=== PATIENT | female | born 1980 | race Asian ===

== ENCOUNTER 2016-08-30 05:20 | Inpatient (IN) | payer OTHER ==
[~2016-08-30] VITALS: Ht 162.6 cm; Wt 74.4 kg
[2016-08-30 10:58] LABS: microscopic required? YES; urine erythrocyte 3+ (NEGATIVE)
[2016-08-30 11:02] LABS: BASOPHIL % 0.3 % (0-2); PLATELET COUNT 239 x10^3mcL (130-400); RED CELL DISTRIBUTION WIDTH 12.6 % (11.5-14.5)
[2016-08-30 11:20] LABS: CALCIUM 8.9 mg/dL (8.5-10.1); CHLORIDE SERUM 105 mmol/L (98-107); CREATININE SERUM 0.8 mg/dL (0.6-1.0); GFR1 > 60 mL/min; GLUCOSE SERUM 108 mg/dL (74-106); SODIUM SERUM 138 mmol/L (136-145)
[2016-08-30 11:25] LABS: ALBUMIN 3.8 g/dL (3.4-5.0); ALKALINE PHOSPHATASE 53 U/L (46-116); ALT/SGPT 338 U/L (14-59); AMYLASE 32 U/L (25-115); AST/SGOT 141 U/L (15-37); LIPASE 147 IU/L (73-393); TOTAL PROTEIN, SERUM 7.4 g/dL (6.4-8.2)
[2016-08-30] MEDS ORDERED: BACTRIM DS1 TAB PO (13:40)
[2016-08-30 14:39] LABS: FREE T4 1.2 ng/dL (0.76-1.46); FREE THYROXINE INDEX 3.7 ug/dL (1.4-4.5); T4(THYROXINE) 11.7 ug/dL (4.7-13.3)
[2016-08-30 14:47] LABS: T3 TOTAL 1.51 ng/mL
[2016-08-30 15:41] LABS: CHOLESTEROL/HDL RATIO 3.4; MAGNESIUM 2.1 mg/dL (1.8-2.4); PHOSPHOROUS 2.4 mg/dL (2.5-4.9)
[2016-08-30 16:09] VITALS: BP 129/83
[2016-08-30 17:17] LABS: AMPHETAMINE QUAL UR NONE DETECTED (NEG <=1000)
[2016-08-30 17:28] VITALS: Ht 162.6 cm; Wt 74.4 kg
[2016-08-30 20:36] VITALS: BP 114/70
[2016-08-31 05:45] VITALS: BP 112/71
[2016-08-31 06:35] LABS: BASOPHIL % 0.3 % (0-2); PLATELET COUNT 194 x10^3mcL (130-400); RED CELL DISTRIBUTION WIDTH 12.4 % (11.5-14.5)
[2016-08-31 06:49] LABS: CALCIUM 8.1 mg/dL (8.5-10.1); CARBON DIOXIDE 22.5 mmol/L (21-32); CHLORIDE SERUM 113 mmol/L (98-107); CREATININE SERUM 0.8 mg/dL (0.6-1.0); GFR1 > 60 mL/min; GLUCOSE SERUM 109 mg/dL (74-106); POTASSIUM SERUM 3.8 mmol/L (3.5-5.1); SODIUM SERUM 146 mmol/L (136-145)
[2016-08-31 08:40] VITALS: BP 110/69
[2016-08-31 13:40] VITALS: BP 119/69
[2016-08-31 13:45] VITALS: BP 114/75
[2016-08-31 17:21] VITALS: BP 122/82
[2016-08-31 20:57] VITALS: BP 109/69
[2016-09-01 05:25] VITALS: BP 100/76
[2016-09-01 06:08] LABS: BASOPHIL % 0.3 % (0-2); PLATELET COUNT 208 x10^3mcL (130-400); RED CELL DISTRIBUTION WIDTH 12.5 % (11.5-14.5)
[2016-09-01 06:25] LABS: CALCIUM 8.9 mg/dL (8.5-10.1); CARBON DIOXIDE 22.8 mmol/L (21-32); CHLORIDE SERUM 108 mmol/L (98-107); CREATININE SERUM 0.7 mg/dL (0.6-1.0); GFR1 > 60 mL/min; GLUCOSE SERUM 117 mg/dL (74-106); MAGNESIUM 2.1 mg/dL (1.8-2.4); PHOSPHOROUS 3.2 mg/dL (2.5-4.9); POTASSIUM SERUM 3.9 mmol/L (3.5-5.1); SODIUM SERUM 141 mmol/L (136-145)
[2016-09-01] MEDS ORDERED: FLO4 PO ×2 (09:33→21:12)
[2016-09-01] MEDS ORDERED: APAP/HYDROCODON1 T13 PO (09:33)
[2016-09-01] MEDS ORDERED: MAC100 PO (09:49)
[2016-09-01] MEDS ORDERED: LAC PO ×2 (09:49→21:14)
[2016-09-01] MEDS ORDERED: COLACE100 MG PO ×2 (09:51→21:14)
[2016-09-01 09:54] VITALS: BP 113/84
[2016-09-01 12:07] VITALS: BP 113/84
== END 2016-09-01 13:30 | disposition home or self-care (01) | DRG 465 ==
LOC: ED 05:20 → DU 13:26 → MU 08-31 11:54
PROVIDERS: Emergency Medicine; ADMIT Family Medicine
DX: N13.30 Unspecified hydronephrosis (principal); N17.0 Acute kidney failure with tubular necrosis; E78.2 Mixed hyperlipidemia; E83.39 Other disorders of phosphorus metabolism; N20.2 Calculus of kidney with calculus of ureter
CPT/HCPCS: 82962; 83880; 84439; C9113; J1885; J1956; J7030; J7040

== ENCOUNTER 2019-03-05 08:15 | Emergency (ER) | payer OTHER ==
[~2019-03-05] VITALS: Ht 160 cm; Wt 59.9 kg
[~2019-03-05 08:15] MED LIST: APAP/HYDROCODON1 T13 PO; BACTRIM DS1 TAB PO; COLACE100 MG PO; FLO4 PO; LAC PO; MAC100 PO
[2019-03-05 08:19] VITALS: Ht 160 cm; Wt 59.9 kg
[2019-03-05 08:56] LABS: BASOPHIL % 0.2 % (0-2); PLATELET COUNT 244 x10^3mcL (130-400); RED CELL DISTRIBUTION WIDTH 12.5 % (11.5-14.5)
[2019-03-05 09:18] LABS: CALCIUM 9.4 mg/dL (8.5-10.1); CARBON DIOXIDE 25.5 mmol/L (21-32); CHLORIDE SERUM 99 mmol/L (98-107); CREATININE SERUM 0.8 mg/dL (0.6-1.0); GFR1 > 60 mL/min; GLUCOSE SERUM 134 mg/dL (74-106); POTASSIUM SERUM 3.6 mmol/L (3.5-5.1); SODIUM SERUM 133 mmol/L (136-145)
[2019-03-05 09:23] LABS: ALBUMIN 4.3 g/dL (3.4-5.0); ALKALINE PHOSPHATASE 38 U/L (46-116); ALT/SGPT 36 U/L (14-59); AST/SGOT 12 U/L (15-37); BILIRUBIN TOTAL 1.1 mg/dL (0.20-1.00); LIPASE 155 IU/L (73-393); TOTAL PROTEIN, SERUM 8.1 g/dL (6.4-8.2)
[2019-03-05 14:37] VITALS: BP 115/77
== END 2019-03-05 14:37 | disposition short-term general hospital (02) ==
LOC: ED 08:15
PROVIDERS: Emergency Medicine
DX: K81.0 Acute cholecystitis (principal)
CPT/HCPCS: J0694; J1885; Q0092; Q0162